=== PATIENT | female | born 1945 | race Caucasian/White ===

== ENCOUNTER 2017-04-29 09:45 | Outpatient (CLI) | payer MEDICARE, OTHER | END 2017-04-29 09:46 | disposition home or self-care (01) | LOC: BICMAMMO 09:45 | PROVIDERS: ATTEND Family Medicine | DX: Z12.31 Encounter for screening mammogram for malignant neoplasm of breast (principal); Z80.3 Family history of malignant neoplasm of breast | CPT/HCPCS: 77063; 77067 ==

== ENCOUNTER 2018-05-12 10:08 | Outpatient (CLI) | payer MEDICARE, OTHER | END 2018-05-12 10:09 | disposition home or self-care (01) | LOC: BICMAMMO 10:08 | PROVIDERS: ATTEND Family Medicine | DX: Z12.31 Encounter for screening mammogram for malignant neoplasm of breast (principal); R92.1 Mammographic calcification found on diagnostic imaging of breast; Z80.3 Family history of malignant neoplasm of breast | CPT/HCPCS: 77063; 77067 ==

== ENCOUNTER 2019-05-17 10:20 | Outpatient (CLI) | payer MEDICARE, OTHER ==
--- NOTE | 2019-05-17 11:07 | MMO ---
Bilateral MAMMO Bilat Screen [facility]. CLINICAL HISTORY: Patient is 73 years old and is seen for screening. The patient has no personal history of cancer. VIEWS: The views performed were: bilateral craniocaudal with tomosynthesis and bilateral mediolateral oblique with tomosynthesis. FILMS COMPARED: The present examination has been compared to prior imaging studies performed at [facility] on 03/27/2015, 04/02/2016, 04/29/2017 and 05/12/2018. This study has been interpreted with the assistance of computer-aided detection. MAMMOGRAM FINDINGS: The breasts are heterogeneously dense, which could obscure a lesion on mammography. There are stable benign appearing calcifications seen in both breasts. There are also vascular calcifications. There are no suspicious masses, suspicious calcifications, or new areas of architectural distortion. IMPRESSION: THERE IS NO MAMMOGRAPHIC EVIDENCE OF MALIGNANCY. A ROUTINE FOLLOW-UP MAMMOGRAM IN 1 YEAR IS RECOMMENDED. THE RESULTS OF THIS EXAM WERE SENT TO THE PATIENT. ACR BI-RADS Category 2 - Benign finding MAMMOGRAPHY NOTE: 1. A negative mammogram report should not delay a biopsy if a dominant of clinically suspicious mass is present. 2. Approximately 10% to 15% of breast cancers are not detected by mammography. 3. Adenosis and dense breasts may obscure an underlying neoplasm. Reported by: ANTHONY SOLIS MD Electonically Signed: [id number]
== END 2019-05-17 10:21 | disposition home or self-care (01) ==
LOC: BICMAMMO 10:20
PROVIDERS: ATTEND Family Medicine
DX: Z12.31 Encounter for screening mammogram for malignant neoplasm of breast (principal)
CPT/HCPCS: 77063; 77067

== ENCOUNTER 2020-01-18 08:29 | Day surgery (SDC) | payer MEDICARE, OTHER ==
[2020-01-17 14:05] VITALS: BMI 21.9
[2020-01-18 08:57] LABS: PTT 32.6 sec (22.9-36.1); Prothrombin Time 13.1 sec (12.0-14.7)
[2020-01-18 09:19] VITALS: BP 160/64; TEMP 97.3
--- NOTE | 2020-01-18 10:39 | CT ---
Bone marrow aspiration/biopsy CT-guided Conscious sedation: At least 30 minutes spent with the patient for conscious sedation. FINDINGS: After explaining the procedure and answering all questions, limited CT imaging of the pelvi s was performed with patient prone. Sterile technique, buffered local anesthesia, conscious sedation, CT guidance, and a posterior approa ch were used to carefully advance an 11-gauge trocar needle to the posterior cortex of the left iliac body. Needle was carefully engaged. Total of 9 cc blood was carefully aspirated and submitted t o pathology personnel. 11-gauge core specimen was then obtained and submitted to pathology personnel. Postprocedure imaging shows no evidence of complication. Patient tolerated the procedure w ell and was returned to the holding area in good condition for further monitoring. IMPRESSION : Technically successful CT-guided bone marrow aspiration/biopsy.
--- NOTE | 2020-01-21 10:47 | CT ---
Bone marrow aspiration/biopsy CT-guided Conscious sedation: At least 30 minutes spent with the patient for conscious sedation. FINDINGS: After explaining the procedure and answering all questions, limited CT imaging of the pelvi s was performed with patient prone. Sterile technique, buffered local anesthesia, conscious sedation, CT guidance, and a posterior approa ch were used to carefully advance an 11-gauge trocar needle to the posterior cortex of the left iliac body. Needle was carefully engaged. Total of 9 cc blood was carefully aspirated and submitted t o pathology personnel. 11-gauge core specimen was then obtained and submitted to pathology personnel. Postprocedure imaging shows no evidence of complication. Patient tolerated the procedure w ell and was returned to the holding area in good condition for further monitoring. IMPRESSION : Technically successful CT-guided bone marrow aspiration/biopsy. Transcribed Date/Time: 01/21/2020 10:47 AM
== END 2020-01-18 12:15 | disposition home or self-care (01) ==
LOC: CT 08:29
PROVIDERS: ATTEND Internal Medicine Hematology & Oncology
PROC: 07DR3ZX Extraction of Iliac Bone Marrow, Percutaneous Approach, Diagnostic (ICD-10-PCS; principal; 2020-01-18)
DX: D53.9 Nutritional anemia, unspecified (principal); D75.89 Other specified diseases of blood and blood-forming organs; D63.8 Anemia in other chronic diseases classified elsewhere; I10 Essential (primary) hypertension; E78.5 Hyperlipidemia, unspecified; K58.9 Irritable bowel syndrome, unspecified; I87.2 Venous insufficiency (chronic) (peripheral); M85.80 Other specified disorders of bone density and structure, unspecified site; F32.9 Major depressive disorder, single episode, unspecified; F41.9 Anxiety disorder, unspecified; J30.2 Other seasonal allergic rhinitis
CPT/HCPCS: 20225; 36415; 77002; 85097; 85610; 85730; 88184; 88237; 88264; 88280; 88305; 88311; 88313; 88341; 88342

== ENCOUNTER 2020-05-28 10:19 | Outpatient (CLI) | payer MEDICARE, OTHER ==
--- NOTE | 2020-05-28 11:15 | MMO ---
Bilateral MAMMO Bilat Screen [facility]. CLINICAL HISTORY: Patient is 74 years old and is seen for screening. The patient has no family history of breast cancer. The patient has no personal history of cancer. VIEWS: The views performed were: bilateral craniocaudal with tomosynthesis and bilateral mediolateral oblique with tomosynthesis. FILMS COMPARED: The present examination has been compared to prior imaging studies performed at [facility] on 04/02/2016, 04/29/2017, 05/12/2018 and 05/17/2019. This study has been interpreted with the assistance of computer-aided detection. MAMMOGRAM FINDINGS: The breasts are heterogeneously dense, which could obscure a lesion on mammography. There are stable benign appearing calcifications seen in both breasts. There are also vascular calcifications. There are no suspicious masses, suspicious calcifications, or new areas of architectural distortion. IMPRESSION: THERE IS NO MAMMOGRAPHIC EVIDENCE OF MALIGNANCY. A ROUTINE FOLLOW-UP MAMMOGRAM IN 1 YEAR IS RECOMMENDED. THE RESULTS OF THIS EXAM WERE SENT TO THE PATIENT. ACR BI-RADS Category 2 - Benign finding MAMMOGRAPHY NOTE: 1. A negative mammogram report should not delay a biopsy if a dominant of clinically suspicious mass is present. 2. Approximately 10% to 15% of breast cancers are not detected by mammography. 3. Adenosis and dense breasts may obscure an underlying neoplasm. Reported by: ANTHONY SOLIS MD Electonically Signed: [id number]
== END 2020-05-28 10:20 | disposition home or self-care (01) ==
LOC: BICMAMMO 10:19
PROVIDERS: ATTEND Family Medicine
DX: Z12.31 Encounter for screening mammogram for malignant neoplasm of breast (principal)
CPT/HCPCS: 77063; 77067

== ENCOUNTER 2022-04-01 11:58 | Outpatient (CLI) | payer MEDICARE | END 2022-04-01 11:59 | disposition home or self-care (01) | LOC: BICMAMMO 11:58 | PROVIDERS: ATTEND Family Medicine | DX: Z12.31 Encounter for screening mammogram for malignant neoplasm of breast (principal) | CPT/HCPCS: 77063; 77067 ==

== ENCOUNTER 2022-07-30 11:26 | Outpatient (CLI) | payer MEDICARE, OTHER | END 2022-07-30 11:27 | disposition home or self-care (01) | LOC: SCSMRI 11:26 | PROVIDERS: ATTEND Internal Medicine Hematology & Oncology | DX: R51.9 Headache, unspecified (principal); R25.1 Tremor, unspecified; E63.1 Imbalance of constituents of food intake; D50.0 Iron deficiency anemia secondary to blood loss (chronic); D53.9 Nutritional anemia, unspecified; D75.89 Other specified diseases of blood and blood-forming organs; D63.8 Anemia in other chronic diseases classified elsewhere; D46.B Refractory cytopenia with multilineage dysplasia and ring sideroblasts; I67.89 Other cerebrovascular disease; R90.89 Other abnormal findings on diagnostic imaging of central nervous system | CPT/HCPCS: 70553 ==